=== PATIENT | female | born 1975 | race Caucasian/White ===

== ENCOUNTER 2017-09-05 19:31 | Emergency (ER) | payer OTHER ==
[~2017-09-05] VITALS: Ht 167.6 cm; Wt 113.4 kg
[~2017-09-05 19:31] MED LIST: FLEXERIL PO; IBUPROFEN 800800 M1 PO; NOHOMEMEDICATIONS; NORCO 5-325 TA1 EACH PO; PREDNISONE50 MG PO
[2017-09-05] MEDS ORDERED: AMOXICILLIN 50500 M1 (20:29)
[2017-09-05] MEDS ORDERED: MEDROLDOSEPACK PO (21:05)
[2017-09-05 21:14] VITALS: BP 148/94
== END 2017-09-05 21:15 | disposition home or self-care (01) ==
LOC: M.ERS 19:31
DX: J02.0 Streptococcal pharyngitis (principal)